=== PATIENT | male | born 1940 | race Caucasian/White ===

== ENCOUNTER 2017-06-27 15:56 | Emergency (ER) | payer MEDICARE, OTHER ==
[~2017-06-27] VITALS: Ht 177.8 cm; Wt 90.7 kg
[~2017-06-27 15:56] MED LIST: ADULT LOW DOSE81 MG; CONSTULOSE10 GM/15 M PO; CYCLOBENZAPRINE10 MG PO; DICLOFENAC SODI75 MG; HYDROCODON-ACE1 EA11 PO; IBUPROFEN600 MG PO; METFORMIN HCL750 MG PO; MULTI VITAMIN1 EACH PO; OXYCODON-ACETA1 EAC2 PO; VITAMIN B COMP1 EACH; VITAMIN D-32000 UNIT; ZANAFLEX4 MG PO
[2017-06-27] MEDS ORDERED: FLONASE ALLERG9.9 ML NAS (18:56)
[2017-06-27] MEDS ORDERED: ZITHROMAX250 MG PO (18:56)
--- NOTE | 2017-06-27 22:52 | EKG ---
[facility] [address] [facility] [place] [address] Signed Sinus rhythm with 1st degree AV block Left anterior fascicular block Left ventricular hypertrophy with QRS widening and repolarization abnormality Abnormal ECG When compared with ECG of 10-APR-2016 09:58, No significant change was found Confirmed by MARK ORANTES MD ([id number]) on 06/27/2017 10:52:36 PM Electronically Signed By: MARK ORANTES MD 06/27/17 2252 PATIENT NAME: SHARLENE BOWLES MARIE Electrocardiogram DATE OF : 42 PHYSICIAN: MARK ORANTES MD REPORT #: [id number] REPORT IS CONFIDENTIAL AND NOT TO BE RELEASED WITHOUT AUTHORIZATION
== END 2017-06-27 19:10 | disposition home or self-care (01) ==
LOC: ED 15:56
DX: J32.9 Chronic sinusitis, unspecified (principal); R42 Dizziness and giddiness; E11.9 Type 2 diabetes mellitus without complications; Z88.8 Allergy status to other drugs, medicaments and biological substances; Z79.899 Other long term (current) drug therapy; Z79.82 Long term (current) use of aspirin; Z79.84 Long term (current) use of oral hypoglycemic drugs
CPT/HCPCS: 70551; 80053; 84484; 85025; 93005; 93010; 99284

== ENCOUNTER 2020-01-15 08:35 | Day surgery (SDC) | payer MEDICARE, OTHER ==
[~2020-01-15] VITALS: Ht 177.8 cm; Wt 87.7 kg
[~2020-01-15 08:35] MED LIST changes: +COZAAR50 MG PO; +CRESTOR5 MG PO; +FLONASE ALLERG9.9 ML NAS; +ZITHROMAX250 MG PO
[2020-01-15] MEDS ORDERED: ULTRAM50 MG PO (09:55)
--- NOTE | 2020-01-15 09:57 | NUR ---
01/15/20 0957 Sophie,Jillian 0921 PT ARRIVED TO PACU ON 6L VIA MASK, PT WAKES EAISLY AND DENIES PAIN AND NAUSEA. VSS. RESP EVEN AND UNLABORED. 0954 HOB INCREASED AND O2 REMOVED. PLAN OF CARE DISCUSSED.
--- NOTE | 2020-01-18 08:42 | OR ---
[facility] [address] [place], [place] [address] Signed DATE OF OPERATION: 01/15/2020 SURGEON: Johnny Monique MD PREOPERATIVE DIAGNOSIS: Left carpal tunnel syndrome. POSTOPERATIVE DIAGNOSIS: Left carpal tunnel syndrome. PROCEDURE PERFORMED: Left carpal tunnel release. GAS SCRUBBER OPERATOR: None. ANESTHESIA: Blackgum block. TOURNIQUET TIME: 20 minutes. BRIEF HISTORY: Sharlene is a 79-year-old gentleman with pain and numbness in his left dominant hand. Risks and benefits of operative treatment were discussed after nerve conduction studies confirmed carpal tunnel. DESCRIPTION OF PROCEDURE: Once consent was obtained, he was taken to the operating room. After adequate anesthesia, he was placed on the operating room table. All downside pressure points well padded. The left arm was prepped and draped in a standard sterile fashion and the carpal tunnel was approached through a 1.5 cm incision in the distal wrist crease and carried through the skin and subcutaneous tissue. The palmaris longus was identified, retracted, and protected. Under loupe magnification, the transverse carpal ligament was identified and cleared of soft tissue on the volar surface. It was then released centimeter proximally and to the distal extent distally under direct loupe magnification. The carpal tunnel was palpated and found to be completely released. The wound was copiously irrigated with antibiotic solution and closed with 3-0 nylon and injected with 7 mL of 0.25% plain Marcaine. The wound was dressed with Adaptic, ABD, and gauze. He tolerated Electronically Signed By: JOHNNY MONIQUE MD 01/18/20 0842 PATIENT NAME: SHARLENE BOWLES OPERATIVE REPORT DATE OF : 42 REPORT #: [id number] PHYSICIAN: JOHNNY MONIQUE MD PCP: MARK ORANTES MD REPORT IS CONFIDENTIAL AND NOT TO BE RELEASED WITHOUT AUTHORIZATION [facility] [address] [facility] [place], [place] [address] Signed the procedure well. All sponge, needle, and instrument counts were correct. Johnny Monique MD BA/MODL /[id number] Copies: ~ Electronically Signed By: JOHNNY MONIQUE MD 01/18/20 0842 PATIENT NAME: SHARLENE BOWLES OPERATIVE REPORT DATE OF : 42 REPORT #: [id number] PHYSICIAN: JOHNNY MONIQUE MD PCP: MARK ORANTES MD REPORT IS CONFIDENTIAL AND NOT TO BE RELEASED WITHOUT AUTHORIZATION
== END 2020-01-15 10:35 | disposition home or self-care (01) ==
LOC: DS 08:35 → OPS 08:35 → DS 09:30 → OPS 09:30
PROVIDERS: ATTEND Specialist
PROC: 01N50ZZ Release Median Nerve, Open Approach (ICD-10-PCS; principal; 2020-01-15 10:00)
DX: G56.02 Carpal tunnel syndrome, left upper limb (principal); E11.9 Type 2 diabetes mellitus without complications; I10 Essential (primary) hypertension; Z79.899 Other long term (current) drug therapy; Z79.82 Long term (current) use of aspirin
CPT/HCPCS: 01810; J0690; J2001; J2704; J7121

== ENCOUNTER 2020-09-22 17:28 | Emergency (ER) | payer MEDICARE, OTHER ==
[~2020-09-22] VITALS: Ht 177.8 cm; Wt 87.5 kg
[~2020-09-22 17:28] MED LIST changes: +ULTRAM50 MG PO
[2020-09-22] MEDS ORDERED: NIACIN250 M1 PO (18:06)
[2020-09-22] MEDS ORDERED: FISH OIL 1,0001 EAC2 NG (18:06)
[2020-09-22] MEDS ORDERED: ONDANSETRON ODT8 MG PO (19:52)
[2020-09-22] MEDS ORDERED: HYDROCODON-ACE1 EA10 PO (19:52)
== END 2020-09-22 20:06 | disposition home or self-care (01) ==
LOC: ED 17:28
DX: N13.2 Hydronephrosis with renal and ureteral calculous obstruction (principal); E11.9 Type 2 diabetes mellitus without complications; Z88.8 Allergy status to other drugs, medicaments and biological substances; Z79.899 Other long term (current) drug therapy; Z79.82 Long term (current) use of aspirin
CPT/HCPCS: 74176; 80053; 81001; 85025; 96374; 96375; 99284-25; J1885; J2405

== ENCOUNTER 2021-12-04 06:32 | Emergency (ER) | payer MEDICARE, OTHER ==
[~2021-12-04] VITALS: Ht 177.8 cm; Wt 84.3 kg
[~2021-12-04 06:32] MED LIST changes: +FISH OIL 1,0001 EAC2 NG; +HYDROCODON-ACE1 EA10 PO; +NIACIN250 M1 PO; +ONDANSETRON ODT8 MG PO
[2021-12-04] MEDS ORDERED: HYDROCODON-ACE1 EA10 PO (09:59)
[2021-12-04] MEDS ORDERED: ZITHROMAX250 MG PO (09:59)
== END 2021-12-04 10:20 | disposition home or self-care (01) ==
LOC: ED 06:32
DX: N20.2 Calculus of kidney with calculus of ureter (principal); E11.9 Type 2 diabetes mellitus without complications; I10 Essential (primary) hypertension; E78.5 Hyperlipidemia, unspecified; Z87.442 Personal history of urinary calculi; Z88.6 Allergy status to analgesic agent; Z79.82 Long term (current) use of aspirin; Z79.84 Long term (current) use of oral hypoglycemic drugs; Z79.899 Other long term (current) drug therapy
CPT/HCPCS: 36415; 71046; 74176; 80053; 81001; 85025; 96374; 96375; 99284-25; J1885; J2405; J3010; J7121

== ENCOUNTER 2022-01-03 09:38 | Emergency (ER) | payer MEDICARE, OTHER ==
[~2022-01-03] VITALS: Ht 177.8 cm; Wt 83.9 kg
--- OUTSIDE RECORDS SUMMARY | 2022-01-03 09:41 | XMS ---
PreManage Notification: SHARLENE BOWLES Security Facilities Project Manager Events No recent Security Events currently on file CRITERIA MET - [facility] - 2 Visits in 30 Days CARE PROVIDERS There are no care providers on record at this time. Geovanni has no Care Guidelines for this patient. V[facility]ha [facility] (12 MO.) [facility] T[facility] NOTE: Visits indicate total known visits. ED/C VISIT TRACKING (12 MO.) [facility] COMPLAINT: - R FLANK PAIN 12/04/2021 06:33 [facility] [place] TYPE: Emergency COMPLAINT: - R FLANK PAIN DIAGNOSES: - Type 2 diabetes mellitus without complications - Other jail (current) drug therapy - Calculus of kidney with calculus of ureter - FPC (current) use of aspirin - Hyperlipidemia, unspecified - Allergy status to analgesic agent - Personal history of urinary calculi - Essential (primary) hypertension - Unspecified abdominal pain - rn long term care (current) use of oral hypoglycemic drugs INPATIENT VISIT TRACKING (12 MO.) No inpatient visits to display in this time frame [id number]
[2022-01-03] MEDS ORDERED: FLOMAX0.4 MG PO (11:32)
[2022-01-03] MEDS ORDERED: CIPRO250 MG PO (11:32)
[2022-01-03] MEDS ORDERED: HYDROCODON-ACE1 EA11 PO (11:34)
[2022-01-03] MEDS ORDERED: ONDANSETRON ODT4 MG PO (11:34)
== END 2022-01-03 12:05 | disposition home or self-care (01) ==
LOC: ED 09:38
DX: N13.2 Hydronephrosis with renal and ureteral calculous obstruction (principal); E11.9 Type 2 diabetes mellitus without complications; E78.00 Pure hypercholesterolemia, unspecified; Z88.8 Allergy status to other drugs, medicaments and biological substances; Z79.899 Other long term (current) drug therapy; Z79.84 Long term (current) use of oral hypoglycemic drugs; Z79.82 Long term (current) use of aspirin; Z20.822 Contact with and (suspected) exposure to COVID-19
CPT/HCPCS: 36415; 74176; 80053; 85025; 96361; 96374; 96375; 99284-25; C9803; J1170; J1885; J2405; J7030; U0003

== ENCOUNTER 2022-01-08 10:00 | Day surgery (SDC) | payer MEDICARE, OTHER ==
[~2022-01-08] VITALS: Ht 177.8 cm; Wt 84.0 kg
[~2022-01-08 10:00] MED LIST changes: +CIPRO250 MG PO; +FLOMAX0.4 MG PO; +ONDANSETRON ODT4 MG PO
[2022-01-08] MEDS ORDERED: AMLODIPINE BESYL5 MG PO (10:55)
--- NOTE | 2022-01-08 15:27 | NUR ---
01/08/22 1527 Miryam Acosta 1521- PT ARRIVES TO PACU NONAROUSABLE TO STIMULI. RESP EVEN AND UNLABORED. OXYGEN SAT LOW 90'S ON RA. 1523- PT'S OXYGEN SAT DROPPED TO THE MID 80'S ON RA. ATTEMPT TO WAKE PT. PT NONAROUSABLE. PT PLACED ON 6L VIA MASK. OXYGEN SAT IMPROVED TO 100% ON THIS.
--- NOTE | 2022-01-08 15:56 | NUR ---
PT BACK TO DS RM 3 VIA STRETCHER AWAKE AND ALERT. PT STATES PAIN IN RIGHT FLANK /, PROVIDED PAIN RX PER JOJO SIERRA. PT DENIES NAUSEA AND PROVIDED ICED WATER AND APPLESUACE. SPOUSE AT BEDSIDE, CALL LIGHT WITHIN REACH. PT STATES URGE TO VOID AND STANDS AT BEDSIDE WITH RN ASSIST. PT VOIDS RED BLOOD WITH NO CLOTS PRESENT, APPROX 25 MLS. PT STATES "THAT REALLY SMARTS" AND ENCOURAGED TO RELAX IN STRETCHER, DC CRITERIA EXPLAINED TO PT.
[2022-01-08] MEDS ORDERED: CIPRO500 MG PO (16:56)
--- NOTE | 2022-01-08 16:56 | NUR ---
PT IS DOING WELL. TOLERATING FLUIDS. CALL LIGHT WITHIN REACH. AT BEDSIDE. NO ADDITIONAL NEEDS OR CONCERNS.
[2022-01-08] MEDS ORDERED: HYDROCODON-ACE1 EA10 PO (16:57)
--- NOTE | 2022-01-08 18:41 | NUR ---
[id number]: DR. WRIGHT NOTIFIED OF PT URINARY STATUS AND STATES SHE WOULD LIKE HIM TO VOID AT LEAST 50 MLS PRIOR TO DC. IF PT UNABLE TO VOID SHE WOULD LIKE A TRUJILLO CATHETER PLACED AND PT TO RETURN TO DS TOMORROW TO HAVE REMOVED. PT INFORMED AND WOULD LIKE TO WAIT "CLOSE TO 6" TO TRY. PT SPOUSE EXITS ROOM TO TAKE PRESCRIPTION TO PHARMACY AT THIS TIME. [id number]: IN TO ASSESS PT AND SEE IF HE CAN VOID. PT NOT QUITE READY AND WOULD LIKE 10 MORE MINUTES. PT SPOUSE REMAINS GONE AT THIS TIME. PT TOLERATES PO WITH NO NAUSEA AND RATES PAIN TOLERABLE AT THIS TIME. [id number]: PT AMBULATES TO BATHROOM WITH STEADY GAIT AND RN ASSIST, ABLE TO VOID APPROX 50 MLS RED URINE WITH NO CLOTS NOTED. BACK TO DS RM 3 TO GET DRESSED, SPOUSE BACK AT THIS TIME. DR. WRIGHT NOTIFIED OF PT STATUS AND IS AGREEABLE WITH PT DC HOME. PT ENCOURAGED TO CALL DR. WRIGHT OFFICE OR SEEK EMERGENT CARE IF UNABLE TO VOID ONCE HOME. [id number]: VSS AND PT DRESSES SELF WITH SPOUSE AT BEDSIDE. DC INSTRUCTIONS PRESENTED VERBALLY AND WRITTEN TO PT AND SPOUSE. JOJO WONG PUSHES PT VIA WC TO PERSONAL VEHICLE AT HOSPITAL ENTRANCE TO HOME. PT PLANS TO RETURN IN 1 WEEK TO HAVE URETEROSCOPY AND STENT REMOVED.
--- NOTE | 2022-01-08 19:42 | EKG ---
[facility] [address] [place] [address] Signed Sinus rhythm with marked sinus arrhythmia Left anterior fascicular block Left ventricular hypertrophy with QRS widening and repolarization abnormality Abnormal ECG When compared with ECG of 12-JAN-2020 12:07, GA interval has decreased Vent. rate has increased BY 30 BPM Confirmed by BRE GOVEA MD ([id number]) on 01/08/2022 7:41:49 PM Electronically Signed By: BRE GOVEA MD 01/08/221941 PATIENT NAME: SHARLENE BOWLES Electrocardiogram DATE OF : 42 PHYSICIAN: BRE GOVEA MD REPORT #: [id number] REPORT IS CONFIDENTIAL AND NOT TO BE RELEASED WITHOUT AUTHORIZATION
--- NOTE | 2022-01-10 14:08 | OR ---
[facility] [address] [facility] [place], [place] [address] Signed DATE OF OPERATION: 01/08/2022 SURGEON: Chencho Wright MD PREOPERATIVE DIAGNOSIS: Obstructing 4 mm distal right ureteral calculus. POSTOPERATIVE DIAGNOSIS: Obstructing 4 mm distal right ureteral calculus with the addition of the following; diminutive right ureteral orifice, suggestive of scar tissue remaining from prior stone passage. NAMES OF PROCEDURES: 1. Diagnostic cystoscopy with right retrograde pyelogram. 2. Attempted semi-rigid ureteroscopy. 3. Insertion of an indwelling 6 x 28 cm double-J ureteral stent into the right collecting system. ANESTHESIA: General. ESTIMATED BLOOD LOSS: None. COMPLICATIONS: None. SPECIMENS: None. DRAINS: A 6 x 28 cm double-J ureteral stent inserted into the right collecting system. INDICATIONS FOR PROCEDURE: Mr. Bowles is a very pleasant 81-year-old gentleman with a prior history of nephrolithiasis, who recently presented to me for followup after being seen in the emergency department for severe right-sided flank pain. He underwent a CT scan, which revealed an obstructing 4 mm distal right ureteral calculus. By the time, he was seen in my office, his pain had mostly resolved according to the patient. He was unsure at that time whether or not he had passed the stone. At that time, he was scheduled to Electronically Signed By: CHENCHO WRIGHT MD 01/10/22 1408 PATIENT NAME: SHARLENE BOWLES OPERATIVE REPORT DATE OF : 42 REPORT #: [id number] PHYSICIAN: CHENCHO WRIGHT MD PCP: MARK ORANTES MD REPORT IS CONFIDENTIAL AND NOT TO BE RELEASED WITHOUT AUTHORIZATION [facility] [address] [place], [place] [address] Signed [address] a repeat CT scan for re-evaluation of his potentially retained ureteral calculus. Before he could get the outpatient CT scan, he experienced another bad bout of flank pain and ended up in the emergency department again. This time, the stone was noted to be closer to the right ureterovesical junction. The decision was made at that time to go ahead and move forward with ureteroscopic extraction of his right ureteral calculus. The risks and benefits were discussed in detail with the patient at the time of his office visit and he agreed to proceed. OPERATIVE FINDINGS: 1. On cystoscopy, there was no evidence of any suspicious masses, lesions, or stones. Bilateral ureteral orifices are in their normal anatomic location. I did not appreciate any active efflux of urine from the right ureteral orifice. The right ureteral orifice was also noted to be moderately stenosed and also tortuous in nature. The tortuosity of the ureter was revealed more via retrograde pyelogram. 2. After multiple attempts at inserting a semi-rigid ureteroscope into the right ureteral orifice, the decision was made to go ahead and pass an indwelling ureteral stent with the goal of passively dilating the ureteral orifice to make extraction of his 4 mm calculus more safe and effective at the next procedure. A 6 x 28 cm double-J ureteral stent was inserted into the patient's right ureter under direct visualization without difficulty. DESCRIPTION OF PROCEDURE: After informed consent was obtained, the patient was taken back to the operating room. He was transferred from the [facility] to the operating room table, where general anesthesia was induced. He was placed in the dorsal lithotomy position and his genitalia prepped and draped in a standard sterile fashion. Using a 30-degree lens on a 22.5-Singaporean introducer, a rigid cystoscope was inserted through his urethra into his bladder under direct visualization. Panendoscopic views of bladder then obtained. I turned my attention to the right ureteral orifice. It appeared to be very diminutive in appearance. Upon closer inspection, it appears as though the stenosis could be secondary to scar tissue from a previous stone passage. This was confirmed via the patient's prior stone passage history. A cone-tipped catheter was advanced into the catheter and a right retrograde pyelogram was performed. Please see above findings. I then first attempted to pass a 0.035 Sensor wire into the right ureteral orifice. By virtue of the way, the ureteral orifice appeared and due to its distal tortuosity, I was unable to initially pass the Sensor wire into the patient's right ureteral orifice. I then decided to use a semi-rigid ureteroscope in an attempt to pass the wire into the patient's ureter. While I was there, I attempted to advance the scope into the distal right ureter and this was also unsuccessful. I removed the semi-rigid ureteroscope and then I used a 6-Singaporean open-ended ureteral catheter to guide the Sensor wire into the patient's right ureteral orifice. This time, I was successful. I made the decision at that time to go ahead and place a stent to passively dilate the ureter in order to make Electronically Signed By: CHENCHO WRIGHT MD 01/10/22 1408 PATIENT NAME: SHARLENE BOWLES OPERATIVE REPORT DATE OF : 42 REPORT #: [id number] PHYSICIAN: CHENCHO WRIGHT MD PCP: MARK ORANTES MD REPORT IS CONFIDENTIAL AND NOT TO BE RELEASED WITHOUT AUTHORIZATION [address] [address] Signed extraction of the 4 mm stone safer and easier at a later date . Once the Sensor wire was inserted into the ureter sucessfully, I passed a 6 x 28 cm double-J ureteral stent into the patient's right collecting system under direct visualization without difficulty. Once the wire was pulled, fluoroscopy confirmed an adequate coil within the right renal pelvis. An adequate distal coil was seen on cystoscopy at the end of the procedure. The patient's bladder was then drained and the cystoscope was removed. The procedure was then terminated. The patient tolerated the procedure well without any complication. He will now be transferred to the postanesthesia care unit in stable condition. DISPOSITION: I discussed the details of today's procedure with the patient's and answered all of her questions. I told her today that unfortunately Sharlene's right ureter was not going to cooperate to allow me to safely pass my semi-rigid ureteroscope into the distal right ureter. I, therefore, made a decision to place a stent and bring the patient back in one week to undergo definitive stone extraction in the form of right ureteroscopy with laser lithotripsy and basket extraction of stone fragments, along with a right ureteral stent exchange. He will be sent home today with oxycodone 5 mg one tablet p.o. q.6 hours p.r.n. pain along with oral antibiotics. MD EDUARD Ott/LEELEE /[id number] Copies: ~ Electronically Signed By: CHENCHO WRIGHT MD 01/10/22 1408 PATIENT NAME: SHARLENE BOWLES OPERATIVE REPORT DATE OF : 42 REPORT #: [id number] PHYSICIAN: CHENCHO WRIGHT MD PCP: MARK ORANTES MD REPORT IS CONFIDENTIAL AND NOT TO BE RELEASED WITHOUT AUTHORIZATION
== END 2022-01-08 18:30 | disposition home or self-care (01) ==
LOC: DS 10:00
PROVIDERS: ATTEND Urology
PROC: 0T768DZ Dilation of Right Ureter with Intraluminal Device, Via Natural or Artificial Opening Endoscopic (ICD-10-PCS; principal; 2022-01-08 10:45)
DX: N20.2 Calculus of kidney with calculus of ureter (principal); N13.8 Other obstructive and reflux uropathy; N40.1 Benign prostatic hyperplasia with lower urinary tract symptoms; N17.9 Acute kidney failure, unspecified; E11.9 Type 2 diabetes mellitus without complications; Z79.84 Long term (current) use of oral hypoglycemic drugs; I10 Essential (primary) hypertension
CPT/HCPCS: 74018; 74420; 93005; 93010; C1769; C2617; J0690; J1100; J1885; J2250; J2405; J2704; J3010; Q9967

== ENCOUNTER 2022-12-25 09:43 | Day surgery (SDC) | payer MEDICARE, OTHER ==
[~2022-12-25] VITALS: Ht 177.8 cm; Wt 84.0 kg
[~2022-12-25 09:43] MED LIST changes: +AMLODIPINE BESYL5 MG PO; +CARVEDILOL12.5 MG PO; +CIPRO500 MG PO; +FUROSEMIDE20 MG PO; +INDAPAMIDE1.25 MG PO; +LEVOFLOXACIN250 MG PO; +NEURONTIN300 MG PO
[2022-12-25 10:22] VITALS: BP 136/84
[2022-12-25 11:31] VITALS: BP 143/72
--- NOTE | 2022-12-25 20:22 | OR ---
[facility] [address] [place], [place] [address] Signed DATE OF OPERATION: 12/25/2022 SURGEON: Kali Lassiter MD PREOPERATIVE DIAGNOSIS: Low-grade hepatic disease with presumed cirrhosis, assess for portal hypertension. POSTOPERATIVE DIAGNOSES: 1. No evidence of esophageal varices. 2. Mild antral gastritis (chronic). PROCEDURE: Esophagogastroduodenoscopy with biopsy ANESTHESIA: Intravenous sedation; fentanyl 100 mcg and Versed 4 mg. INDICATION: This 82-year-old white man has had long-standing low-grade cirrhosis of the liver. This is thought likely related to medications ingested in the past certainly not alcohol abuse by any means. He has been referred by his current doctor Leta Flannery for consideration for upper endoscopy to assess for portal hypertension by assessment for varices. He generally feels well with no evidence or complaint of reflux disease, blood per rectum, hematemesis or other issue. He is admitted to undergo upper endoscopy. He understands the risk of bleeding, infection, and perforation. FINDINGS: There were no varices. He did have mild antral gastritis for which biopsies were obtained. CLOtest was negative 15 minutes post procedure. DESCRIPTION OF PROCEDURE: The patient was brought to the endoscopy suite and placed in the lateral decubitus position, given topical lidocaine hypopharyngeal anesthesia. A bite block was placed. He was given intravenous sedation to the point of slurred speech and nystagmus. Full cardiopulmonary monitoring was maintained. An Olympus video upper endoscope was passed in the hypopharynx. The vocal cords appeared normal and the scope was easily passed in the esophagus. Passage down the esophagus showed no evidence of varices, stricture, neoplasm, or Gomez's epithelium. Scope was advanced to the stomach which was insufflated with air. There was mild antral Electronically Signed By: KALI LASSITER MD 12/25/222021 PATIENT NAME: SHARLENE BOWLES OPERATIVE REPORT DATE OF : 42 REPORT #: [id number] PHYSICIAN: KALI LASSITER MD PCP: LETA FLANNERY MD REPORT IS CONFIDENTIAL AND NOT TO BE RELEASED WITHOUT AUTHORIZATION [facility] [address] [place], [place] [address] Signed gastritis but no sign of pyloric stenosis or anything of that sort. The scope was passed through the pylorus into the duodenum. Biopsies were taken of the duodenum to assess for celiac disease. The scope was withdrawn and biopsies taken of the antrum for both SANDY and pathologic testing. Retroflexed view showed a reasonably good flap valve. There was no sign of proximal gastric lesion. The scope was withdrawn to the distal esophagus where biopsies were obtained. There was no sign of varices of the distal or mid portion particularly. Further withdrawal showed no other abnormality. The scope was removed and the patient was taken to the recovery room in good condition. CONCLUDING DIAGNOSIS: No evidence of esophageal varices. Mild antral gastritis. PLAN: Would recommend avoidance of NSAID medication generally speaking. Would not require specific treatment for the antral gastritis as he is symptom free currently. He will return to the ongoing care of Dr. Leta Flannery. MD ZULEMA Bundy/RASHELL /[id number] cc: Leta Flannery MD Copies: ~ Electronically Signed By: KALI LASSITER MD 12/25/222021 PATIENT NAME: SHARLENE BOWLES OPERATIVE REPORT DATE OF : 42 REPORT #: [id number] PHYSICIAN: KALI LASSITER MD PCP: LETA FLANNERY MD REPORT IS CONFIDENTIAL AND NOT TO BE RELEASED WITHOUT AUTHORIZATION
== END 2022-12-25 11:43 | disposition home or self-care (01) ==
LOC: OPS 09:43 → DS 09:43 → OPS 10:15 → DS 13:00 → OPS 13:00
PROVIDERS: ATTEND Surgery
PROC: 0DB68ZX Excision of Stomach, Via Natural or Artificial Opening Endoscopic, Diagnostic (ICD-10-PCS; 2022-12-25)
PROC: 0DB38ZX Excision of Lower Esophagus, Via Natural or Artificial Opening Endoscopic, Diagnostic (ICD-10-PCS; 2022-12-25)
PROC: 0DB98ZX Excision of Duodenum, Via Natural or Artificial Opening Endoscopic, Diagnostic (ICD-10-PCS; principal; 2022-12-25 10:15)
DX: K29.50 Unspecified chronic gastritis without bleeding (principal); K74.60 Unspecified cirrhosis of liver; E11.9 Type 2 diabetes mellitus without complications; K59.00 Constipation, unspecified
CPT/HCPCS: 88305; 99153; G0500; J0690; J2250; J3010; J7121

== ENCOUNTER 2023-09-16 19:43 | Emergency (ER) | payer MEDICARE, OTHER ==
[~2023-09-16] VITALS: Ht 177.8 cm; Wt 85.3 kg
--- NOTE | ~2023-09-16 | EKG ---
[facility] [address] [facility] [place], [place] [address] Draft EK completed, results pending confirmation PATIENT NAME: SHARLENE BOWLES Electrocardiogram DATE OF : 42 PHYSICIAN: PRELIMINARY REPORT #: [id number] REPORT IS CONFIDENTIAL AND NOT TO BE RELEASED WITHOUT AUTHORIZATION
--- OUTSIDE RECORDS SUMMARY | 2023-09-16 19:43 | XMS ---
PreManage Notification: SHARLENE BOWLES Security Strain Technician Events No recent Security Events currently on file CRITERIA MET - [facility] CARE PROVIDERS [facility] Internal Medicine Current PHONE: [phone] Geovanni has no Care Guidelines for this patient. EThomas VISIT COUNT (12 MO.) 1 [facility] Jackson TOTAL 1 NOTE: Visits indicate total known visits. ED/UCC VISIT TRACKING (12 MO.) 09/16/2023 19:43 [facility] [place] TYPE: Emergency COMPLAINT: - WEAKNESS INPATIENT VISIT TRACKING (12 MO.) No inpatient visits to display in this time frame [email or web address]
[2023-09-16 19:55] LABS: BASOPHILS 0.6 % (0-2); EOSINOPHILS 0.5 % (0-6); HEMATOCRIT 37.9 % (35.0-50.0); HEMOGLOBIN 12.6 g/dL (12.0-18.0); LYMPHOCYTES 5.1 % (24-44); MCH 30.8 (27-36); MCHC 33.3 g/dl (30-36); MCV 92.6 fl (81-99); MONOCYTES 9.2 % (0-12); NEUTROPHILS 84.6 % (39-80); PLATELET COUNT 168 K/uL (140-440); RBC 4.09 M/ul (4.3-5.7); RDW 14.7 (10.5-15.0)
[2023-09-16] MEDS ORDERED: METFORMIN HCL500 M1 PO (19:56)
[2023-09-16] MEDS ORDERED: GABAPENTIN300 MG PO (19:57)
[2023-09-16] MEDS ORDERED: ASPIRIN 81 MG CHEW PO ONE (20:00)
[2023-09-16 20:06] LABS: PARTIAL THROMBOPLASTIN TIME 29.2 Sec (22.9-41.3)
[2023-09-16 20:10] LABS: INR 1.13 (0.80-1.30); PROTIME 13.8 Sec (11.2-14.2)
[2023-09-16 20:14] LABS: ALBUMIN 3.4 g/dL (3.4-5.0); ALBUMIN/GLOBULIN RATIO 1.13 (1.1-2.4); ANION GAP 13.7 (7-21); BILIRUBIN, TOTAL 0.6 ng/dL (0.2-1.0); BUN/CREATININE RATIO 13.27 (6.0-28.6); CALCIUM 8.7 mg/dL (8.5-10.1); CREATININE, SERUM 1.13 mg/dL (0.70-1.30); MAGNESIUM 1.4 mg/dL (1.8-2.4); POTASSIUM 4.7 mmol/L (3.5-5.1); PROTEIN, TOTAL 6.4 g/dL (6.4-8.2)
[2023-09-16] MEDS ORDERED: TAMSULOSIN HCL 0.4 MG CAP PO ONE (20:15)
[2023-09-16] MEDS ORDERED: ONDANSETRON 4 MG HOME.PACK SL ONE (20:15)
[2023-09-16] MEDS ORDERED: CIPROFLOXACIN 500 MG TAB PO ONE (20:15)
[2023-09-16] MEDS ORDERED: HYDROCODONE BIT/ACETAMINOPHEN 5/325 MG 1 TAB HOME.PACK PO ONE (20:15)
[2023-09-16 20:52] LABS: INFLUENZA B NAA NEGATIVE (NEGATIVE); RESPIRATORY SYNCYTIAL VIR NAA NEGATIVE (NEGATIVE)
[2023-09-16] MEDS ORDERED: DEXAMETHASONE SOD PHOS 10 MG/ML VIAL IV ONE (21:00)
[2023-09-16] MEDS ORDERED: MAGNESIUM SULFATE 2 GM/50 ML BAG IV ONE (21:00)
[2023-09-16] MEDS ORDERED: PAXLOVID 300-11 EAC1 PO (22:18)
[2023-09-16] MEDS ORDERED: MAGNESIUM OXID400 M1 PO (22:18)
[2023-09-16] MEDS ORDERED: ACETAMINOPHEN 325 MG TAB PO ONE (22:30)
[2023-09-16] MEDS ORDERED: ALBUTEROL SULFATE 8 GM HOME.PACK INH ONE (22:30)
[2023-09-16] MEDS ORDERED: INHALER, ASSIST DEVICES 1 EACH SPACER MISC ONE (22:30)
[2023-09-17 00:15] VITALS: BP 111/62
== END 2023-09-17 00:15 | disposition home or self-care (01) ==
LOC: ED 19:43
PROVIDERS: Family Medicine
DX: U07.1 COVID-19 (principal); E11.9 Type 2 diabetes mellitus without complications; I10 Essential (primary) hypertension; E78.00 Pure hypercholesterolemia, unspecified; Z88.8 Allergy status to other drugs, medicaments and biological substances; Z88.2 Allergy status to sulfonamides; Z79.899 Other long term (current) drug therapy; Z79.84 Long term (current) use of oral hypoglycemic drugs; Z79.82 Long term (current) use of aspirin
CPT/HCPCS: 36415; 71045; 71260; 80053; 83605; 83735; 83880; 84484; 85025; 85379; 85610; 85730; 87502; 93005; 93010; 96366; 99285-25; A9270; J1100; J3475; Q9967; U0002